=== PATIENT | male | born 1960 | race African-American/Black ===

== ENCOUNTER 2020-06-12 08:56 | Outpatient (CLI) | payer OTHER | END 2020-06-12 08:57 | disposition home or self-care (01) | LOC: BICRAD 08:56 | PROVIDERS: ATTEND Internal Medicine Infectious Disease | DX: Z21 Asymptomatic human immunodeficiency virus [HIV] infection status (principal); L29.9 Pruritus, unspecified; F17.200 Nicotine dependence, unspecified, uncomplicated | CPT/HCPCS: 71046 ==

== ENCOUNTER 2021-07-21 10:55 | Emergency (ER) | payer OTHER ==
[2021-07-21] MEDS ORDERED: predniSONE 20 MG TAB ONE (12:43)
== END 2021-07-21 12:30 | disposition home or self-care (01) ==
LOC: ERS 10:55
DX: M10.9 Gout, unspecified (principal); I10 Essential (primary) hypertension; E78.5 Hyperlipidemia, unspecified; Z79.899 Other long term (current) drug therapy
CPT/HCPCS: 99283; J7512

== ENCOUNTER 2021-08-20 10:18 | Outpatient (CLI) | payer OTHER | END 2021-08-20 10:19 | disposition home or self-care (01) | LOC: SCSRAD 10:18 | PROVIDERS: ATTEND Family Medicine | DX: M25.571 Pain in right ankle and joints of right foot (principal) ==